=== PATIENT | female | born 1990 | race Caucasian/White ===

== ENCOUNTER 2016-10-17 11:05 | Emergency (ER) | payer SELFPAY ==
[2016-10-17 11:25] VITALS: BP 126/78; TEMP 97.9; O2SAT 100
[2016-10-17] MEDS ORDERED: SUCRALFATE 1 GM/10 ML 1 GM UD PO ONE (12:17)
[2016-10-17] MEDS ORDERED: LIDOCAINE VIS-MYLANTA 30 ML UD PO ONE (12:17)
--- NOTE | 2016-10-17 12:24 | ED.PDOC ---
History of Present Illness - General Chief Complaint: Abdominal Pain Stated Complaint: abdominal pain Time Seen by Provider: 10/17/16 12:22 Information Source: patient Exam Limitations: no limitations - History of Present Illness Abdominal Pain Onset Location: LLQ, epigastric Pain Radiation: no radiation Quality: dull, steady - got better on arrival at er Timing/Duration: 1-3 hours Improving Factors: nothing Worsening Factors: nothing Associated Symptoms: heartburn, other - sour taste Review of Systems - Review of Systems Constitutional: States: no symptoms reported EENTM: States: no symptoms reported Respiratory: States: no symptoms reported Cardiology: States: no symptoms reported Gastrointestinal/Abdominal: States: see HPI Genitourinary: States: no symptoms reported Musculoskeletal: States: no symptoms reported Neurological: States: no symptoms reported Endocrine: States: no symptoms reported Past Medical History (General) - Patient Medical History Hx Diabetes: No Surgical History: other - lap band - Vaccination History Hx Influenza Vaccination: Yes - Social History Hx Tobacco Use: No - Activities of Daily Living Patient Lives Alone: No - - Female History Patient is a Female of Child Bearing Age (10 -59 yrs old): Yes Hx Last Menstrual Period: 10/02/16 Patient : No Family Medical History - Family History Mother Family History: Unknown Living Status: Unknown Hx Cardiac Disease: Yes Hx Family Diabetes: Yes Hx Family Cancer: Yes - breast,cervical Physical Exam - Physical Exam General Appearance: Alert, No apparent distress Eyes, Ears, Nose, Throat Exam: PERRL/EOMI, normal ENT inspection, TMs normal, pharynx normal Neck: non-tender, supple, normal inspection Respiratory: chest non-tender, lungs clear, normal breath sounds Cardiovascular/Chest: normal peripheral pulses, regular rate, rhythm, no murmur Peripheral Pulses: No deficit Gastrointestinal/Abdominal: normal bowel sounds, non tender, soft, no organomegaly Back Exam: normal inspection, no vertebral tenderness Extremity: non-tender, normal inspection, no pedal edema Progress - Progress Progress: 10/17/16 12:33 [facility] [place] - Results/Orders Results/Orders: Laboratory Results Urine Color Yellow (Yellow) 10/17/16 11:20 Urine Appearance Clear (Clear) 10/17/16 11:20 Urine pH 5.5 (4.5-7.8) 10/17/16 11:20 Ur Specific [place] >= 1.030 (1.005-1.030) 10/17/16 11:20 Urine Protein Trace mg/dL 10/17/16 11:20 Urine Glucose (UA) Negative mg/dL (Negative) 10/17/16 11:20 Urine Ketones Negative mg/dL (NEGATIVE) 10/17/16 11:20 Urine Blood Negative (Negative) 10/17/16 11:20 Urine Nitrite Negative 10/17/16 11:20 Urine Bilirubin Small (NEGATIVE) H 10/17/16 11:20 Urine Urobilinogen 0.2 mg/dL (0.2-1.0) 10/17/16 11:20 Ur Leukocyte Esterase Negative (Negative) 10/17/16 11:20 Urine RBC 0-1 /hpf 10/17/16 11:20 Urine WBC 0-1 /hpf 10/17/16 11:20 Ur Epithelial Cells 3-5 /hpf 10/17/16 11:20 Amorphous Sediment 4+ 10/17/16 11:20 Urine Bacteria 1+ 10/17/16 11:20 Urine HCG, Qual Negative 10/17/16 11:23 Departure - Departure Clinical Impression: Peptic reflux disease Abdominal pain Qualifiers: Abdominal location: epigastric Qualifier Code: (R10.13) Epigastric pain Time of Disposition: 12:28 Disposition: Discharge to Home or Self Care Condition: Good Departure Forms: ED Discharge - Pt. Copy, Patient Portal Self Enrollment Instructions: DI for Abdominal Pain-Adult, GERD Diet, DI for Gastroesophageal Reflux Disease (GERD) -- Child Referrals: EDELMIRA DIAMOND IV, APARTMENT LEASING SPECIALIST [Primary Care Provider] - 1-2 Weeks Prescriptions: Ranitidine HCl [Acid Control Maximum Stre] 150 mg PO ACHS #60 tab Home Medications: Ambulatory Orders Ranitidine HCl [Acid Control Maximum Stre] 150 mg PO ACHS #60 tab 10/17/16
== END 2016-10-17 12:39 | disposition home or self-care (01) ==
LOC: ER 11:05
DX: K21.9 Gastro-esophageal reflux disease without esophagitis (principal); R10.13 Epigastric pain; Z98.84 Bariatric surgery status

== ENCOUNTER → 2017-08-01 | Outpatient (CLI) | payer BC ==
--- NOTE | 2017-08-02 08:54 | US ---
EXAM DESCRIPTION: Renal: Ultrasound. CLINICAL HISTORY: CALCULUS OF KIDNEY COMPARISON: Pelvic ultrasound on the same visit. TECHNIQUE: Transcutaneous scanning: Two-dimensional and Doppler modes. Technically difficult study due to patient large body habitus. FINDINGS: Right kidney measures 10.2 x 4.7 x 5.3 cm; mid-renal cortical thickness 13 mm. . Echogenicity unremarkable. No hydronephrosis No calcifications. Smooth contour of the kidney with no perinephric fluid. Normal vascularity. Proximal ureter not visualized. Left kidney measures 10.3 x 6.4 x 4.3 cm; mid-renal cortical thickness 12 mm.. Echogenicity unremarkable. No hydronephrosis. No calcifications. Smooth contour of the kidney with no perinephric fluid. Normal vascularity.. Proximal ureter not visualized. Urinary bladder not visualized. Abdominal aorta diameter not measured IMPRESSION: Minimal thinning of the renal cortex bilaterally. Technically difficult study due to patient body habitus. Kidneys otherwise unremarkable. Did not visualize urinary bladder or abdominal aorta. Electronically signed by: Ang Wilson MD 08/02/2017 8:53 AM CDT
--- NOTE | 2017-08-02 09:11 | US ---
EXAM DESCRIPTION: Pelvis Transvaginal CLINICAL HISTORY: LLQ PN, R10.32. LMP unknown. Obstetrical history unknown. COMPARISON: Ultrasound kidneys on the same visit. TECHNIQUE: Endovaginal scanning; color Doppler and two-dimensional modes. FINDINGS: The uterus measures 8.4 x 5.4 x 4.1 cm cc. Endometrial thickness is 2.3 mm. The myometrium appears heterogeneous; well-defined echogenic object measuring 6.0 x 4.4 x 3.7 mm posterior to the endometrium; no acoustic shadowing. Isoechoic mass in the anterior wall near the fundus measuring 12 x 10 x 8 mm. The uterus is not retroverted. The cervix contains a 3.2 mm well-defined cyst.. The cul-de-sac contains no fluid. Right ovary measures 3.2 x 3.0 x 2.5 cm . Normal color and waveform Doppler vascularity. Small follicles. 2.3 x 2.2 x 1.6 cm cyst. No adnexal mass or free fluid. Left ovary measures 2.4 x 1.8 x 1.8 cm . Normal color and waveform Doppler vascularity. 1.7 x 1.0 x 1.0 cm follicle but no cysts. No adnexal mass or free fluid. IMPRESSION: 1. Normal size of the uterus with no endometrial thickening or fluid. 12 mm fibroid in the fundus. Nabothian cyst in the cervix. No fluid in the cul-de-sac. 2. Right ovary with normal vascularity; contains a 2.3 cm cyst and small follicles. Cyst appears simple. 3. Left ovary with normal vascularity; multiple follicles. No imaging follow-up is recommended, based upon [facility] Best Practice guidelines for imaging follow-up of simple ovarian cysts. Please see below.* Recommendations for f/u of ovarian anechoic simple cyst, simple cyst with single thin <3 mm septation, or focal calcification in wall of cyst (1): Pre-menopause: <= 5 cm No follow-up imaging recommended >5 cm - <=7 cm US f/u annually >7 cm Consider MR w/IVC or surgical evaluation Post-menopause (>=1 year from last menstrual period): <=3 cm No follow-up imaging recommended >3 cm - <=7 cm US f/u annually >7 cm Consider MR w/IVC or surgical evaluation (1) Recommendations based on 2010 SRU Consensus Conference Statement on the Management of Asymptomatic Ovarian and Other Adnexal Cysts Imaged at US: Radiology. 2009;256(3):699-19 Electronically signed by: Ang Wilson MD 08/02/2017 9:10 AM CDT
== END | disposition home or self-care (01) ==
LOC: US 08:12
PROVIDERS: ATTEND Obstetrics & Gynecology
DX: N20.0 Calculus of kidney (principal)

== ENCOUNTER → 2020-08-08 | Outpatient (CLI) | payer OTHER ==
--- NOTE | 2020-08-09 10:41 | US ---
EXAM DESCRIPTION: OB Level 2 /Maternal: Ultrasound. CLINICAL HISTORY: 29 years Female Gestational size and dates correlation. OB level 2 /maternal evaluation. Second trimester anatomic survey. unknown.. By medical history , EGA today is 18 weeks, 5 days, with MARCIN of January 04, 2021. COMPARISON: Previous OB ultrasound not available. TECHNIQUE: Trans-pelvic scanning through the urine-filled bladder; nava-scale, color Doppler, and M-mode sonography. FINDINGS: Single, intrauterine gestation, cephalic position. Amniotic fluid volume and RANDELL: Subjectively normal, not measured. Maternal cervix internal os closed. Placenta posterior with no evidence of previa or abruptio. heart rate by M-mode sonography 147 beats/min. limb activity observed. structural survey: Situs solitus. The following structures were visualized and grossly normal - urinary bladder, stomach, and bilateral kidneys; cord insertion, 3-vessel cord and 4 extremities; spine longitudinal 4-chamber heart, diaphragm, lateral ventricles, cerebellum, and cisterna magna. Nose/lips not well seen due to facial and head position Ultrasound parameter measurements for estimating gestational age: BPD 4.3 cm 19 (weeks/days). Head circumference 16.1 cm 19/0. Abdominal circumference 13.4 cm 18/6. Femur length 3.0 cm 19/1. Ultrasound parameter ratios and cephalic index within the normal range. Mean estimated gestational age 19 weeks 0 days, corresponding to MARCIN of January 02, 2021. Estimated weight based on these measurements is 267+/- 40 g. 9 ounces 61st percentile by medical history. Bilateral adnexa not well seen; ovaries not seen. IMPRESSION: 1. Single, living, intrauterine gestation in cephalic presentation. Amniotic fluid volume subjectively normal, and maternal cervix internal os closed. Placenta posterior with no evidence of previa. Structural survey grossly normal, but limited views of facial structures and head due to position. 2. Estimated gestational age by today's ultrasound examination is 19 weeks 0 days with MARCIN January 02, 2021. This is 2 days older than the estimated gestation age by medical history. 3. Estimated weight is 267 g. 9 ounces. 61st percentile by medical history. Electronically signed by: Ang Wilson MD 08/09/2020 10:40 AM CDT
== END ==
LOC: US 09:00
PROVIDERS: ATTEND Emergency Medicine
DX: Z34.82 Encounter for supervision of other normal pregnancy, second trimester (principal); Z3A.19 19 weeks gestation of pregnancy